=== PATIENT | male | born 1955 | race Caucasian/White ===

== ENCOUNTER 2017-03-31 08:52 | Outpatient (CLI) | payer OTHER ==
--- NOTE | 2017-03-31 10:27 | RAD ---
AP ABDOMINAL RADIOGRAPH: 03/31/2017 HISTORY: Renal stone. FINDINGS: The majority of the right renal shadow is obscured due to overlying retained fecal material in the c olon. No definite suspicious calcifications overlying the expected location of the renal collecting systems bilaterally. There is a calcification overlying the right hemipelvis, which was not seen o n an AP view of the pelvis from 09/11/2014. A distal right ureteral calculus could not be entirely excluded. This measures 5 mm in greatest dimensions. Degenerative changes are seen in the spine. Bowel gas pattern is nonspecific. Surgical clips overly the right upper quadrant. IMPRESSION: Approximately 5 mm, oval-shaped calcification overlying the right hemipelvis. This was not seen on views of the pelvis from 09/11/2014. A distal right ureteral calculus could not be excluded based o n this exam. No additional suspicious calcifications are seen. POS: [facility]
--- NOTE | 2017-03-31 10:48 | ULT ---
RENAL ULTRASOUND: HISTORY: Elevated PSA. COMPARISON: None. TECHNIQUE: Longitudinal and transverse imaging of the kidneys is performed. FINDINGS: The kidneys have a normal cortical echotexture. Bilaterally, no hydronephrosis. The right kidney measures 12.1 x 4.8 x 4.8 cm. The left kidney measures 11.8 x 6 x 6.5 cm. Bladder has a normal mucosal appearance and measures 8.1 x 8.3 x 8.2 cm. IMPRESSION: 1. No hydronephrosis. 2. Normal bladder mucosa. POS:
== END 2017-03-31 08:53 | disposition home or self-care (01) ==
LOC: ULT 08:52
PROVIDERS: ATTEND Urology
DX: N20.0 Calculus of kidney (principal); R97.20 Elevated prostate specific antigen [PSA]
CPT/HCPCS: 74000; 76770

== ENCOUNTER 2017-04-03 14:42 | Outpatient (CLI) | payer OTHER ==
--- NOTE | 2017-04-03 17:53 | RAD ---
ABDOMEN 1 VIEW: Date: 04/03/17 COMPARISON: 03/31/17. HISTORY: Renal stone. FINDINGS: Nonspecific bowel gas pattern. No calcifications projecting over either renal silhouette. Stable david cifications in right hemipelvis, measuring 5.0 mm. IMPRESSION: Stable right hemipelvic calcification. POS: [facility]
== END 2017-04-03 14:43 | disposition home or self-care (01) ==
LOC: RAD 14:42
PROVIDERS: ATTEND Urology
DX: N20.0 Calculus of kidney (principal)
CPT/HCPCS: 74000

== ENCOUNTER 2017-04-15 09:48 | Outpatient (CLI) | payer OTHER ==
[2017-04-15 10:23] LABS: Anion Gap 14 mmol/L (10-20); BUN (Urea Nitrogen) 16 mg/dL (8.4-25.7); Calc. Creatinine Clearance 0 mL/min (70-130); Calcium 9.3 mg/dL (7.8-10.44); Carbon Dioxide 25 mmol/L (23-31); Chloride 104 mmol/L (98-107); Estimated GFR-MDRD 72
--- NOTE | 2017-04-15 13:23 | CT ---
CT ABDOMEN WITH AND WITHOUT IV CONTRAST CT PELVIS WITH AND WITHOUT IV CONTRAST: Date: 04-15-17 History: Recently diagnosed prostate cancer. Rising PSA numbers. Renal stone. Comparison: 08-08-13 FINDINGS: Previously noted inferior pole right renal calculus is no longer seen and there is a 5 mm calculus s een in the distal right ureter which does not result in hydronephrosis or hydroureter. No left renal or ureteral calculus is visualized. There is a small enhancing lesion measuring 8 mm at the posterior aspect superior pole right kidney. This was also seen on a prior study in 2013 and is unchanged in size since that examination. A subc entimeter too small to characterize hypodense lesion is seen at the inferior pole right kidney. The left kidney has a normal CT appearance and no enhancing renal mass or calculus is visualized. Ca lcified granuloma is present at the left lung base. There is a very tiny, less than 4 mm, nodule in the right middle lobe also stable compared to the prior study on 2013. Post cholecystectomy changes are noted. A 1.2 cm low density lesion is seen in the inferior aspect right hepatic lobe which was also seen on the prior exam of 2013 and is smaller in size on today's exam. This probably represents a small hep atic cyst. The spleen, pancreas, bilateral adrenal glands and urinary bladder demonstrate a normal CT appearanc e. Minimal vascular calcifications are seen in the distal infrarenal abdominal aorta and involving the iliac arteries. The appendix is visualized and normal in caliber. There are small fat containing bilateral inguinal hernias. Mild degenerative changes are seen in the spine and there is pseudoarticulation of the right lateral mass of L5 with S1. IMPRESSION: 1. Distal right ureteral calculus measuring 5 mm. This does not result in hydronephrosis or hydroure ter. 2. Approximately 8 mm enhancing nodule posterior aspect superior pole right kidney which may represe nt a very small renal cell carcinoma but is unchanged in size compared to a study obtained at [facility] on 08-08-13. 3. Right hepatic lobe cyst. 4. Small fat containing bilateral inguinal hernias. 5. Small duodenal diverticulum. POS: [facility]
[2017-04-15] MEDS ORDERED: Iopamidol 370 76% 100 ML VIAL ONE (16:05)
== END 2017-04-15 09:49 | disposition home or self-care (01) ==
LOC: CT 09:48
PROVIDERS: ATTEND Urology
DX: N20.0 Calculus of kidney (principal); N20.1 Calculus of ureter; K76.89 Other specified diseases of liver; K40.20 Bilateral inguinal hernia, without obstruction or gangrene, not specified as recurrent; K57.10 Diverticulosis of small intestine without perforation or abscess without bleeding
CPT/HCPCS: 36415; 74178; 80048

== ENCOUNTER 2017-04-30 13:14 | Outpatient (CLI) | payer OTHER ==
--- NOTE | 2017-04-30 15:26 | RAD ---
SUPINE ABDOMEN: History: Prostate ca. Ureteral calculus. Comparison: CT from 04-15-17 revealed a 5 mm calculus in the distal right ureter. Plain film from showed a calculus in the right pelvis which may correspond to that calculus. FINDINGS: Rounded calcification in the right pelvis is again seen and is unchanged. It may reflect the previou sly noted ureteral calculus although it could also represent a phlebolith. No other calculus identif ied. IMPRESSION: Rounded calcification in the right pelvis which would overlie the distal right ureter is again seen and is unchanged when compared to the plain film of 04-03-17. POS: [facility]
[2017-04-30 16:16] LABS: Bilirubin Negative (Negative); Blood, Urine Negative (Negative); Glucose, Urine (Dipstick) 100 mg/dL (Negative); Ketone, Urine Negative (Negative); Nitrite Negative (Negative); Protein, Urine (Dipstick) Negative (Neg-Trace); Urobilinogen 0.2 mg/dL (0.2-1.0)
[2017-04-30 16:17] LABS: Bacteria/HPF None Seen HPF (None Seen); Hyaline Casts/LPF 0-3 HYALINE CAST LPF (0-3 Hyaline); RBC/HPF 0-3 HPF (0-3); Squamous Epithelial None Seen HPF (0-3); WBC/HPF None Seen HPF (0-3)
[2017-04-30 16:21] LABS: Hematocrit 43.5 % (42.0-52.0); Mean Platelet Volume 7.2 fL (7.4-10.4); Red Blood Cell (RBC) Count 4.63 mill/uL (4.70-6.10); White Blood Cell (WBC) Count 8.7 thou/uL (4.8-10.8)
[2017-04-30 16:24] LABS: PTT 27.8 SEC (22.9-36.1); Prothrombin Time 13.3 SEC (12.0-14.7)
[2017-04-30 16:34] LABS: Anion Gap 13 mmol/L (10-20); BUN (Urea Nitrogen) 15 mg/dL (8.4-25.7); Calc. Creatinine Clearance 0 mL/min (70-130); Calcium 9.6 mg/dL (7.8-10.44); Carbon Dioxide 26 mmol/L (23-31); Chloride 102 mmol/L (98-107); Estimated GFR-MDRD 84
== END 2017-04-30 13:15 | disposition home or self-care (01) ==
LOC: RAD 13:14
PROVIDERS: ATTEND Urology
DX: Z01.818 Encounter for other preprocedural examination (principal); N20.1 Calculus of ureter; C61 Malignant neoplasm of prostate
CPT/HCPCS: 74000; 80048; 81001; 85027; 85610; 85730; 87086

== ENCOUNTER 2017-05-29 08:57 | Outpatient (CLI) | payer OTHER ==
--- NOTE | 2017-05-29 12:46 | MRI ---
MRI OF THE PELVIS WITH AND WITHOUT IV CONTRAST: INDICATION: A 61-year-old male with prostate cancer. CONTRAST: 19 cc of MultiHance. TECHNIQUE: Multiplanar, multisequence MR images were obtained of the pelvis with and without contrast utilizing 19 cc of MultiHance. The patient has a diagnosis of Prostate cancer; however, the prostate biopsy is undetermined by the provided data. FINDINGS: The prostate measures 4.2 x 3.4 x 3.9 cm. The total prostatic volume is 28.9 cc. There are some areas of linear and lenticular T1 hyperintensity within the peripheral zone likely rel ated to residual hemorrhage. This corresponds to areas of T2 hypointensity on the T2 weighted images . No overt area of restricted diffusion is seen within the peripheral zone. There is prominence of the central gland likely related to a component of BPH. No suspicious lesion is evident. Anterior fibrostroma is within normal limits. The visualized neurovasculature appears within normal limits. Seminal vesicles are normal-appearing. There is mild wall thickening involving the bladder. No pathologically enlarged lymph nodes eviden t. There are fat-containing bilateral inguinal hernias. Incidental note is made of a small right hy drocele. IMPRESSION: 1. PI-RADS category 2 - low (clinically significant cancer is unlikely to be present). 2. Some limitations of the exam due to hyperintensity within the peripheral zone likely related to s ome underlying residual prostatic hemorrhage. This can obscure evaluation for smaller lesions, parti cularly within the peripheral zone. 3. Prostate enlargement with mild bowel wall thickening may be related to a component of chronic sylvester dder outlet obstruction. 4. Fat-containing bilateral inguinal hernias. 5. Small right-sided hydrocele. POS: [facility]
== END 2017-05-29 08:58 | disposition home or self-care (01) ==
LOC: TBSIIMAG 08:57
PROVIDERS: ATTEND Urology
DX: C61 Malignant neoplasm of prostate (principal)
CPT/HCPCS: 72197

== ENCOUNTER 2017-07-24 16:21 | Outpatient (CLI) | payer OTHER ==
[2017-07-24 17:21] LABS: Hemoglobin 15.7 g/dL (14.0-18.0); Mean Corpuscular HGB CONC 34.3 g/dL (32.0-36.0); Mean Corpuscular Volume 93.3 fl (80.0-94.0); Mean Platelet Volume 7.3 fL (7.4-10.4); Platelet Count 303 thou/uL (130-400); RBC Distribution Width 11.5 % (11.5-14.5); Red Blood Cell (RBC) Count 4.89 mill/uL (4.70-6.10); White Blood Cell (WBC) Count 11.7 thou/uL (4.8-10.8)
[2017-07-24 17:27] LABS: PTT 29.1 SEC (22.9-36.1); Prothrombin Time 13.3 SEC (12.0-14.7)
[2017-07-24 17:35] LABS: Bilirubin Negative (Negative); Blood, Urine Negative (Negative); Clarity CLEAR (Clear); Glucose, Urine (Dipstick) Negative (Negative); Leukocyte Negative (Negative); Nitrite Negative (Negative); Protein, Urine (Dipstick) 30 mg/dL (Neg-Trace); Specific Gravity, Urine 1.025 (1.002-1.036); pH, Urine 6.5 (5.0-9.0)
[2017-07-24 17:37] LABS: Bacteria/HPF None Seen HPF (None Seen); Hyaline Casts/LPF 0-3 HYALINE CAST LPF (0-3 Hyaline); Pathc Cast-AUWi Flag 0.13 (0-2.49); RBC/HPF 0-3 HPF (0-3); Squamous Epithelial None Seen HPF (0-3); WBC/HPF 0-3 HPF (0-3)
[2017-07-24 17:45] LABS: ALT (SGPT) 36 U/L (8-55); AST (SGOT) 30 U/L (5-34); Albumin 4.7 g/dL (3.4-4.8); Alkaline Phosphatase 84 U/L (40-150); Anion Gap 17 mmol/L (10-20); BUN (Urea Nitrogen) 19 mg/dL (8.4-25.7); Bilirubin, Total 0.6 mg/dL (0.2-1.2); Calc. Creatinine Clearance 0 mL/min (70-130); Calcium 9.7 mg/dL (7.8-10.44); Carbon Dioxide 28 mmol/L (23-31); Chloride 100 mmol/L (98-107); Estimated GFR-MDRD 49; Globulin 3.2 g/dL (2.4-3.5); Glucose 124 mg/dL (80-115); Potassium 3.7 mmol/L (3.5-5.1); Protein, Total 7.9 g/dL (5.8-8.1); Sodium 141 mmol/L (136-145)
== END 2017-07-24 16:22 | disposition home or self-care (01) ==
LOC: LABBT 16:21
PROVIDERS: ATTEND Urology
DX: Z01.818 Encounter for other preprocedural examination (principal); C61 Malignant neoplasm of prostate
CPT/HCPCS: 80053; 81001; 85027; 85610; 85730; 87086

== ENCOUNTER 2017-07-30 07:31 | Outpatient (CLI) | payer OTHER ==
--- NOTE | 2017-07-30 08:23 | ULT ---
BILATERAL RENAL ULTRASOUND: History: Renal stones. FINDINGS: The right kidney measures 11.3 cm in length and the left kidney measures 11.6 cm in length. No focal mass or hydronephrosis is seen on either side. Shadowing renal calculi are identified. The urinary bl adder is unremarkable with a pre void volume of 200 cc and a post void residual of 9 cc. IMPRESSION: Unremarkable exam. POS: [facility]
[2017-07-30 08:41] LABS: Anion Gap 12 mmol/L (10-20); BUN (Urea Nitrogen) 15 mg/dL (8.4-25.7); Calc. Creatinine Clearance 0 mL/min (70-130); Calcium 9.2 mg/dL (7.8-10.44); Carbon Dioxide 30 mmol/L (23-31); Chloride 100 mmol/L (98-107); Estimated GFR-MDRD 80; Glucose 187 mg/dL (80-115); Potassium 4.2 mmol/L (3.5-5.1); Sodium 138 mmol/L (136-145)
== END 2017-07-30 07:32 | disposition home or self-care (01) ==
LOC: ULT 07:31
PROVIDERS: ATTEND Urology
DX: N20.0 Calculus of kidney (principal)
CPT/HCPCS: 36415; 76770; 80048

== ENCOUNTER 2017-08-04 10:03 | Outpatient (CLI) | payer OTHER | END 2017-08-04 10:04 | disposition home or self-care (01) | LOC: LABBT 10:03 | PROVIDERS: ATTEND Urology | DX: Z01.818 Encounter for other preprocedural examination (principal); C61 Malignant neoplasm of prostate | CPT/HCPCS: 86850; 86900; 86901 ==

== ENCOUNTER 2017-08-06 06:18 | Inpatient (IN) | payer OTHER ==
[2017-08-06] MEDS ORDERED: Levofloxacin 500 mg/D5W 100 ml Premix Bag ONE (06:27)
[2017-08-06] MEDS ORDERED: cefOXitin Sodium 1 GM, Syringe 0.5 ML in Sterile Water 10 ML SLOW IVP SCH (06:30)
[2017-08-06] MEDS ORDERED: Fentanyl 100 MCG/2 ML VIAL ONE ×2 (07:05→07:35)
[2017-08-06] MEDS ORDERED: Midazolam HCl 2 mg/2 ml Vial ONE (07:05)
[2017-08-06] MEDS ORDERED: Albumin 5% 500 ML ONE ×2 (08:56→09:31)
[2017-08-06] MEDS ORDERED: DOPamine 400 MG/D5W 250 ML 250 ML ONE (09:09)
[2017-08-06] MEDS ORDERED: ceFOXitin 1 GM VIAL ONE ×2 (09:31→12:08)
[2017-08-06] MEDS ORDERED: Norepinephrine 8 MG/0.9% NS 250 ML ONE (10:06)
[2017-08-06] MEDS ORDERED: Rocuronium Bromide 50 MG/5 ML VIAL ONE (12:39)
[2017-08-06] MEDS ORDERED: Bupivacaine HCl 0.5%/Epinephrine 1:200,000/PF 30 ml Vial ONE ×2 (14:38)
[2017-08-06] MEDS ORDERED: Promethazine HCl 25 MG/ML VIAL SLOW IVP PRN (14:59)
[2017-08-06] MEDS ORDERED: Ondansetron HCl/PF 4 MG/2 ML Vial IVP PRN (14:59)
[2017-08-06] MEDS ORDERED: Meperidine HCl/PF 25 MG/ML VIAL SLOW IVP PRN (14:59)
[2017-08-06] MEDS ORDERED: Dextrose 5% in Water 1,000 ML IV PRN (15:33)
[2017-08-06] MEDS ORDERED: Mag-Al 1200 mg/1200 mg/30 ML UDCUP PO PRN (15:33)
[2017-08-06] MEDS ORDERED: Morphine 4 MG/ML Carpuject IVP PRN (15:33)
[2017-08-06] MEDS ORDERED: Dextrose 50% Abboject 50 ML SYRINGE SLOW IVP PRN (15:33)
[2017-08-06] MEDS ORDERED: diphenhydrAMINE 50 MG/ML VIAL IVP PRN (15:33)
[2017-08-06] MEDS ORDERED: Oxybutynin 5 MG TAB PO PRN (15:33)
[2017-08-06] MEDS ORDERED: Zolpidem Tartrate 5 MG TAB PO PRN (15:41)
[2017-08-06] MEDS ORDERED: cefTRIAXone\\ROCEPHIN 1 GM in Sodium Chloride 0.9% 100 ML IVPB SCH (15:45)
[2017-08-06] MEDS ORDERED: ePHEDrine/0.9% NaCl/PF SYRINGE 50 mg/10 ml ONE (15:54)
[2017-08-06] MEDS ORDERED: Morphine 5 MG/ML SYRINGE SLOW IVP PRN (15:54)
[2017-08-06] MEDS ORDERED: Ondansetron HCl/PF 4 MG/2 ML Vial ONE (15:54)
[2017-08-06] MEDS ORDERED: Dexamethasone 20 MG/5 ML VIAL ONE (15:54)
[2017-08-06] MEDS ORDERED: Propofol 200 MG/20 ML VIAL ONE (15:54)
[2017-08-06] MEDS ORDERED: Glycopyrrolate 0.2 MG/ML 5 ML SYRINGE ONE (15:54)
[2017-08-06] MEDS ORDERED: PHENYLEPHRINE-NS 100 MCG/ML 10 ML SYRINGE ONE (15:54)
[2017-08-06] MEDS ORDERED: Lidocaine 1% PF 5 ML VIAL ONE (15:54)
[2017-08-06 16:30] LABS: #Lymphocytes 0.9 thou/uL (1.20-3.40); #Monocytes 0.6 thou/uL (0.11-0.59); #Neutrophils 13.9 thou/uL (1.40-6.50); %Basophils 0.2 % (0.0-1.0); %Eosinophils 0.2 % (0.0-10.0); %Lymphocytes 5.9 % (21.0-51.0); %Monocytes 3.7 % (0.0-10.0); Hemoglobin 12.5 g/dL (14.0-18.0); Mean Corpuscular HGB CONC 34.5 g/dL (32.0-36.0); Mean Corpuscular Hemoglobin 32.6 pg (27.0-31.0); Mean Corpuscular Volume 94.6 fl (80.0-94.0); Mean Platelet Volume 7.4 fL (7.4-10.4); Platelet Count 221 thou/uL (130-400); RBC Distribution Width 11.6 % (11.5-14.5); Red Blood Cell (RBC) Count 3.84 mill/uL (4.70-6.10); White Blood Cell (WBC) Count 15.4 thou/uL (4.8-10.8)
[2017-08-06 16:50] LABS: Anion Gap 13 mmol/L (10-20); BUN (Urea Nitrogen) 16 mg/dL (8.4-25.7); Calc. Creatinine Clearance 85 mL/min (70-130); Calcium 8.4 mg/dL (7.8-10.44); Carbon Dioxide 22 mmol/L (23-31); Chloride 107 mmol/L (98-107); Estimated GFR-MDRD 63; Glucose 184 mg/dL (80-115); Potassium 4.1 mmol/L (3.5-5.1); Sodium 138 mmol/L (136-145)
[2017-08-06] MEDS ORDERED: cefTRIAXone\\ROCEPHIN 1 GM, Syringe 0.4 ML in Sterile Water 9.6 ML SLOW IVP SCH ×2 (17:00→20:00)
[2017-08-06] MEDS ORDERED: Meperidine HCl/PF 25 MG/ML VIAL ONE (17:19)
--- NOTE | 2017-08-06 18:15 | OP ---
DATE OF CONSULTATION: 08/06/2017 PREOPERATIVE DIAGNOSES: 1. Clinical T1c Dundee's score 3+4 prostate cancer. 2. History of impotence. POSTOPERATIVE DIAGNOSES: 1. Clinical T1c Dundee's score 3+4 prostate cancer. 2. History of impotence. PROCEDURE PERFORMED: Robotic-assisted laparoscopic radical prostatectomy, nerve sparing SURGEON: Corrine Nance D.O. LEGAL INVESTIGATOR: Jesus Claros M.D. ANESTHESIA: General. INTRAVENOUS FLUIDS: Approximately 2 liters. ESTIMATED BLOOD LOSS: 150 mL COMPLICATIONS: None apparent. DISPOSITION: To the recovery room in stable condition. SPECIMENS: 1. Prostate, seminal vesicle, portion of vas 2. Frozen sections of the left apical margin x3: Negative for malignancy, right apical margin negative for malignancy. 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 The patient previously followed by Dr. Mari, had prior biopsy due to elevated PSA which has been negative. He presented with a PSA of 8.6, previous PSA of 6.6-7.0. Prostate biopsy demonstrated Dundee score 3+4 prostate cancer involving the left apex to mid prostate. Nomogram demonstrated 1% lymph node probability; therefore lymph node dissection was not performed today. He has been fully informed regarding alternative treatment options including various modality of radiation therapy, active surveillance, watchful waiting. After much consultation, he desired to proceed with robotic-assisted laparoscopic radical prostatectomy, possible conversion to open. He was offered second opinion, which he had sought. He returned to my office to proceed with radical prostatectomy, which he desires for me to proceed with surgery. He declined tertiary care referral . All questions were answered to his satisfaction and he desired to proceed. As he has baseline impotence and has not been sexually active for numerous years, I informed the patient that there is a higher risk of margin positive disease with nerve sparing approach, he desired a trial of nerve sparing; however, he was open to non-nerve sparing if significant adherent tissue. Moreover, his prostate cancer is localized to the left side, patient was advised that we can try to spare the right nerve. Risks and complications were fully discussed with the patient including but not limited to: Bleeding, pain, infection, injury to adjacent organs, such as nerves, major vasculature, bony prominences, PE, DVT, perioperative morbidity and mortality, urinary incontinence that may warrant further intervention, impotence, nerve injury was reviewed with him in detail. The patient also informed regarding possible margin positive disease or biochemical recurrence requiring adjuvant therapy. DESCRIPTION OF THE PROCEDURE: After an informed consent was signed, the patient was taken to the operating room, placed in supine position. General anesthesia, tap block as well as art-line was placed. NG tube was placed. Bilateral KATHLEEN hose, SCDs, and broad-spectrum antibiotics were provided. The patient was placed in 20 degrees steep Trendelenburg position with all pressure points padded and protected at all times. The patient was placed on a antiskid foam pad. His chest was secured with foam tape. At this time, we obtained pneumoperitoneum using a Veress needle entry at the level of the umbilicus. After appropriate pressure of 15 mmHg, we made a camera port incision just inferior to the umbilicus for our 12 mm port. The initial Veress needle appeared to have traversed the prevesical space; however, this was immediately corrected and was not an issue throughout the surgery. The 12 mm port was placed and we inspected the intra-abdominal cavity which demonstrated no evidence of bowel or vascular injury. There were no significant adhesions from his previous laparoscopic cholecystectomy. The left colon was somewhat mildly adherent to the lateral pelvis. Therefore, the lysis of adhesion was performed releasing colon/ rectum that it may be retracted cephalad without tension. At this time, we placed our robotic port sites. #1 arm trocar incision was made with an 11 blade and similarly with the rest of the robotic arms. A 15 mm robotic trocar was placed after 11 mm salon assistant port was placed. We then placed our lateral 8 mm ports on the left side x2, a 5 mm salon assistant port was placed in the right upper quadrant. After all robotic arm ports were placed appropriately, the robot was docked. Then, we began our procedure. Using the ProGrasp bipolar and monopolar scissors, we performed our posterior dissection. Approximately 1 to 1.5 cm cephalad anterior to the rectal reflection of the rectovesical pouch, peritoneum was incised. The seminal vesicles and bilateral vas were identified using blunt and sharp dissection. We used bipolar energy on the right. The bilateral vas was dissected sharply using monopolar scissors and divided with our bipolar. The seminal vesicles were very floppy and redundant with significant vasculature adherent. Using sharp and blunt dissection, we were able to mobilize it completely. We did appreciate that the Denonvilliers fascia had significant desmoplastic reaction with the portions of the seminal vesicles that appeared to be adherent. We did release it off the Denonvilliers fascia posteriorly as much as we could. However, some aspects were still adherent. As it was felt to be adequately mobilized, Surgicel placed in the bed of the dissection and we proceeded to perform our bladder dissection. The medial umbilical ligaments were identified bilaterally, there was minimal subcutaneous pneumoperitoneum; however, this was released immediately as we made a counter incision at the perineum. The medial umbilical ligament to the level of the vas deferens was divided, mobilizing our medial and lateral ligaments and developing a space towards the pubic arch. The fibroareolar tissue was dissected cleanly off the pubic rami developing our endopelvic fascia plane. With the bladder dropped with the medial umbilical ligament completely transected, the bladder was then retracted cephalad. The pubic arch was then subsequently further dissected, so that all fiber areolar tissue was off the pubic rami. With the bladder retracted with the third arm, we then developed our endopelvic fascia. We first performed this on the right side, the endopelvic fascia was opened with our monopolar scissors, the levator muscles were dissected cleanly off the lateral aspect of the prostate and this came off nicely. The dorsal venous complex was then inspected. There were some superficial veins which were cauterized with a monopolar [place]. With the endopelvic fascia completely divided to the level of the puboprostatic ligament, the ligament was sharply dissected after hemostasis of the underlying vasculature. We divided the puboprostatic ligaments successfully, however, as there was some venous oozing from the left apex. We then converted to our vascular staple. Using 45 mm, 4.3 mm load, vascular stapler was placed and the dorsal venous complex and divided. There was residual dorsal venous complex that was oozing from the left side. Therefore, using a 0 Vicryl on a CT1 needle with a [id number] stitch was placed in the dorsal vein complex, which resolved the bleeding from the dorsal venous complex and successful hemostasis was obtained. At this time , we developed our prostatovesicle junction. An upside down Farnsworth face was made at the level of the mid prostate with the bladder muscles were inserting into the prostate. The prostatic urethra was sharply dissected using monopolar scissors. The bladder neck dissection was performed in which bladder neck sparing was performed. the posterior plane was met which seminal vesicles and bilateral vas was then delivered anteriorly. We then tried to approach the Denonvilliers fascia from the anterior dissection. The lateral pedicles towards the apex of the prostate still had some significant desmoplastic reaction adherence. Therefore, using sharp dissection, we mobilized the lateral pedicles off the rectum as much as we could. We did perform nerve sparing on the right side where the patient had no evidence of cancer. Of note , at the end of the procedure, the left nerve also appeared to be intact as well after the prostate was delivered. We developed our plane on the lateral pedicles fascia using blunt and sharp dissection using vessel sealer and changing over to bipolar [place] towards the apex of the prostate. The apex of the prostate was quite stuck. He did have significant varicosities and oozing which ended our visualization; however, we were able to divide the urethra and transected successfully. The apical tissue was quite adherent, we were careful on dissecting this region to avoid rectal injury. Using sharp dissection with bipolar energy only, the apex of the prostate was further divided. At the end of the procedure, we inspected the urethral stump which had good healthy tissue. As there was concern regarding possible residual tissue at the apex, we sent some frozen margins in this region. Left apical dissection region was sent for tissue diagnosis. This did demonstrate benign prostate tissue. We subsequently passed more tissue with sharp dissection which demonstrated at the end, only 10% of benign prostatic tissue residual was fibroadipose tissue. We also looked at the right apical transection site underneath the urethra stump. Again, these spots were very adherent to the rectum. With sharp dissection, we sent some frozen margins from the left the apical side as this is the side of his cancer which demonstrated benign prosthetic tissue; however, no malignancy. Decision was made intraoperatively at this point to not to remove more tissue as this was on the plane intimately associated with rectum; moreover there was no substantial tissue. As there was no residual cancer left, decision was made to proceed with the anastomosis. Using 2-0 Vicryl on an SH needle, Jam stitch was placed. Prior to performing this, we placed a Rico catheter into the bladder insufflating with 7 mL of sterile water which allowed us to identify bladder neck very well. Jam stitch was performed in a [id number] fashion. This aligned our anastomosis very nicely. Using 2-0 V-Loc stitch on an SH needle, anastomosis was performed with a watertight closure which we tested at the end of the case. Tisseel was then placed near anastomosis in the lateral colic gutters. A circular drain was placed through our left robotic arm 3, 8 mm port site and sutured to skin using 2-0 nylon. Our specimen was then delivered, placed in an EndoCatch, which was then passed through a 12 mm port. All port sites were then removed and we closed our 11 mm, 15 mm port sites with a Quentin-Kinza needle using 2-0 Vicryl. Skin was closed with 4-0 Monocryl in a subcuticular fashion. The fascia of our 12 mm camera port was closed with 2-0 Vicryl in a [id number] fashion interrupted. He tolerated the procedure well and transported to the recovery room in stable condition. [facility]
[2017-08-06] MEDS: Carvedilol 25 MG TAB PO SCH (20:26)
[2017-08-06] MEDS: Docusate 100 MG CAP PO SCH (20:26)
[2017-08-06] MEDS: HYDROcodone/Acetaminophen 10/325 mg Tablet PO PRN (20:27)
[2017-08-06] MEDS: Sodium Chloride 0.9% 1,000 ML IV SCH (20:29)
[2017-08-06] MEDS ORDERED: Famotidine/PF 20 mg/2ml Vial SLOW IVP SCH (21:00)
[2017-08-07] MEDS: HYDROcodone/Acetaminophen 10/325 mg Tablet PO PRN ×2 (00:19→10:11)
[2017-08-07] MEDS: Sodium Chloride 0.9% 1,000 ML IV SCH ×2 (00:19→07:23)
[2017-08-07 00:43] VITALS: BMI 32.3
[2017-08-07] MEDS: metFORMIN 500 MG TAB PO SCH ×3 (01:52→17:30)
[2017-08-07 04:41] LABS: #Lymphocytes 0.9 thou/uL (1.20-3.40); #Monocytes 1.2 thou/uL (0.11-0.59); #Neutrophils 11.4 thou/uL (1.40-6.50); %Basophils 0.1 % (0.0-1.0); %Eosinophils 0.1 % (0.0-10.0); %Lymphocytes 6.8 % (21.0-51.0); %Monocytes 8.8 % (0.0-10.0); %Neutrophils 84.2 % (42.0-75.0); Hemoglobin 11.7 g/dL (14.0-18.0); Mean Corpuscular HGB CONC 33.7 g/dL (32.0-36.0); Mean Corpuscular Hemoglobin 32.1 pg (27.0-31.0); Mean Corpuscular Volume 95.1 fl (80.0-94.0); Mean Platelet Volume 7.8 fL (7.4-10.4); Platelet Count 210 thou/uL (130-400); RBC Distribution Width 11.7 % (11.5-14.5); Red Blood Cell (RBC) Count 3.64 mill/uL (4.70-6.10); White Blood Cell (WBC) Count 13.5 thou/uL (4.8-10.8)
[2017-08-07 04:48] LABS: Anion Gap 14 mmol/L (10-20); BUN (Urea Nitrogen) 16 mg/dL (8.4-25.7); Calc. Creatinine Clearance 103 mL/min (70-130); Calcium 8.3 mg/dL (7.8-10.44); Carbon Dioxide 23 mmol/L (23-31); Chloride 107 mmol/L (98-107); Estimated GFR-MDRD 75; Glucose 154 mg/dL (80-115); Potassium 3.7 mmol/L (3.5-5.1); Sodium 140 mmol/L (136-145)
[2017-08-07] MEDS: Levothyroxine Sodium 125 MCG TAB PO SCH (06:21)
--- NOTE | 2017-08-07 07:50 | PRG ---
DATE OF SERVICE: 08/07/2017 SUBJECTIVE: The patient feeling well, states that he is hungry, desires to advance his diet, has passed flatus this morning. Pain adequately controlled with oral pain meds, last provided last night around 10:00 p.m. PHYSICAL EXAMINATION: VITAL SIGNS: Stable, afebrile. I's and O's 2200 in, 1300 out. He is positive 900 mL, oral intake is 700 mL. Urine output 1250, clear yellow. AMRITA 50 mL serosanguineous. LUNGS: Clear. ABDOMEN: Soft, nondistended, bowel sounds are active. EXTREMITIES: No cyanosis, clubbing or edema, no evidence of neurologic deficits. Moving all extremities, symmetric with equal strength. LABORATORY DATA: White count 13, hemoglobin 11.7, platelet 210. BNP profile is unremarkable. Blood sugar is running from 169-157. IMPRESSION AND PLAN: Mr. Schmidt is a 61-year-old male, clinical T1c Jose D's score 3+4 adenocarcinoma of the prostate, postoperative day #1 robotic-assisted laparoscopic radical prostatectomy. We will advance his diet as he is passing flatus. We will monitor his H&H. Some of this is likely hemodilutional factor. Will monitor his AMRITA output. Pending his clinical course, if the patient is tolerating regular diet with H&H stable, will most likely be discharged tomorrow morning. Patient encouraged to be out of bed. Hep-Lock IV. If H&H stable tomorrow, we will initiate Lovenox. Bilateral KATHLEEN hose, SCDs remain in place for DVT prophylaxis. Aggressive out of bed ambulation advised. [facility]
[2017-08-07] MEDS ORDERED: Non-Formulary Item 1 EACH (Amlodipine Besylate/Benazepril [Amlodipine Besylate/Benazepril PO SCH (09:00)
[2017-08-07] MEDS ORDERED: FLU VACC QS2017-18 36 mo. & older 0.5 ML SYRINGE IM ONE (09:00)
[2017-08-07] MEDS: Carvedilol 25 MG TAB PO SCH ×2 (10:01→20:08)
[2017-08-07] MEDS: Amlodipine 10 MG TAB PO SCH (10:01)
[2017-08-07] MEDS: Bupropion 150 MG SR TAB PO SCH (10:01)
[2017-08-07] MEDS: Docusate 100 MG CAP PO SCH ×2 (10:01→20:07)
[2017-08-07] MEDS: Famotidine 20 MG TAB PO SCH ×2 (10:01→20:07)
[2017-08-07] MEDS: Atorvastatin Calcium 10 MG TAB PO SCH (10:01)
[2017-08-07] MEDS: Venlafaxine HCl XR 150 MG CAP PO SCH (10:02)
[2017-08-07] MEDS: Morphine 5 MG/ML SYRINGE SLOW IVP PRN (12:27)
[2017-08-07] MEDS: Acetaminophen 500 MG TAB PO PRN (15:23)
[2017-08-07] MEDS: Zolpidem Tartrate 5 MG TAB PO PRN (21:05)
[2017-08-08] MEDS: Ondansetron HCl/PF 4 MG/2 ML Vial IVP PRN ×3 (04:54→21:07)
[2017-08-08] MEDS: Levothyroxine Sodium 125 MCG TAB PO SCH (04:54)
[2017-08-08 05:28] LABS: #Basophils 0.1 thou/uL (0.0-0.2); #Eosinphils 0.1 thou/uL (0.0-0.7); #Lymphocytes 1.8 thou/uL (1.20-3.40); #Monocytes 1.7 thou/uL (0.11-0.59); #Neutrophils 14.7 thou/uL (1.40-6.50); %Basophils 0.3 % (0.0-1.0); %Eosinophils 0.5 % (0.0-10.0); %Lymphocytes 9.7 % (21.0-51.0); %Monocytes 9.4 % (0.0-10.0); %Neutrophils 80.1 % (42.0-75.0); Mean Corpuscular HGB CONC 33.1 g/dL (32.0-36.0); Mean Corpuscular Hemoglobin 31.5 pg (27.0-31.0); Mean Platelet Volume 8.2 fL (7.4-10.4); Platelet Count 225 thou/uL (130-400); RBC Distribution Width 11.8 % (11.5-14.5); Red Blood Cell (RBC) Count 4.14 mill/uL (4.70-6.10); White Blood Cell (WBC) Count 18.3 thou/uL (4.8-10.8)
[2017-08-08 05:43] LABS: Anion Gap 13 mmol/L (10-20); BUN (Urea Nitrogen) 16 mg/dL (8.4-25.7); Calc. Creatinine Clearance 117 mL/min (70-130); Calcium 8.7 mg/dL (7.8-10.44); Carbon Dioxide 24 mmol/L (23-31); Chloride 105 mmol/L (98-107); Estimated GFR-MDRD 87; Glucose 145 mg/dL (80-115); Potassium 3.4 mmol/L (3.5-5.1); Sodium 139 mmol/L (136-145)
--- NOTE | 2017-08-08 08:16 | PRG ---
DATE OF SERVICE: 08/08/2017 SUBJECTIVE: The patient is feeling fatigued this morning, denies chest pain, shortness of breath, had 1 episode of nausea last night on a regular diet. He is passing flatus, however, is not as robust as it was before. PHYSICAL EXAMINATION: VITAL SIGNS: Currently 98, pulse 100, 93% on 2 liters, 167/82. I's and O's 1140 in. Urine output 2250 clear yellow. AMRITA is 45 over 24 hours, 20 over the last 12 hours, it is mostly serous. ABDOMEN: Protuberant, it is mildly more distended than it was yesterday, bowel sounds are active; however, not as active as it was yesterday. Incisions are clean, dry, and intact. There is no rigidity, no rebound. GENITOURINARY: Rico catheter is adequate secured draining clear yellow urine. EXTREMITIES: No cyanosis, clubbing or edema. LABORATORY DATA: White count 18, hemoglobin stable at 13, platelets 225, 80 segs, BMP profile is grossly unremarkable. IMPRESSION AND PLAN: Mr. Schmidt is a 61-year-old male with clinical T1c adenocarcinoma of the prostate status post robotic assisted laparoscopic radical prostatectomy, postop day #2. Clinically, he appears to have developed mild ileus, will revert back to clear liquids. patient has been aggressively out of bed ambulating. As his hemoglobin is now stable, will initiate Lovenox. He is to continue his bilateral KATHLEEN hose, SCDs. There is leukocytosis today, he is feeling somewhat fatigued, we will obtain PA and lateral chest x-ray, LE US. Due to leukocytosis, will keep patient in house and continue to monitor. [facility]
[2017-08-08] MEDS ORDERED: Cefepime 2 GM in Sodium Chloride 0.9% 100 ML IVPB SCH (09:00)
[2017-08-08] MEDS: metFORMIN 500 MG TAB PO SCH ×2 (09:23→17:33)
[2017-08-08] MEDS: Atorvastatin Calcium 10 MG TAB PO SCH (09:23)
[2017-08-08] MEDS: Docusate 100 MG CAP PO SCH ×2 (09:24→20:52)
[2017-08-08] MEDS: Venlafaxine HCl XR 150 MG CAP PO SCH (09:24)
[2017-08-08] MEDS: Carvedilol 25 MG TAB PO SCH ×2 (09:24→20:52)
[2017-08-08] MEDS: Famotidine 20 MG TAB PO SCH ×2 (09:24→20:52)
[2017-08-08] MEDS: Bupropion 150 MG SR TAB PO SCH (09:25)
[2017-08-08] MEDS: Amlodipine 10 MG TAB PO SCH (09:27)
--- NOTE | 2017-08-08 09:27 | RAD ---
PA AND LATERAL CHEST XRAY: DATE: 08/08/17. FINDINGS: There is parenchymal opacity seen at each lung base within the posterior aspect of the lower lobes wo rrisome for bibasilar pneumonia. There is slight blunting of each lateral and posterior costophrenic angle suggesting small bilateral pleural effusions. The cardiac silhouette and pulmonary vasculature are within normal limits. Surgical clips overlie th e right upper quadrant. Multiple remote healed left-sided rib fractures are again seen with degenera tive change in the spine. IMPRESSION: 1. Left lower lobe parenchymal opacity suggesting pneumonia. There is also a patchy density at the right lung base which may be related to atelectasis; although developing pneumonitis at the right chel g base cannot be excluded. Followup to resolution is recommended. 2. Very small bilateral pleural effusions. POS: [facility]
[2017-08-08] MEDS: Enoxaparin Sodium 40 MG/0.4 ML SYRINGE SC SCH (09:29)
[2017-08-08] MEDS: Cefepime 2 GM, Syringe 2.5 ML in Sterile Water 10 ML SLOW IVP SCH ×2 (09:51→20:52)
--- NOTE | 2017-08-08 09:54 | ULT ---
ULTRASOUND WITH DOPPLER DUPLEX VENOUS LOWER EXTREMITY BILATERAL: CPT: 14318 ICD-10-PCS: B54D HISTORY: Hypoxia, short of breath, edema. TECHNIQUE: Color flow Doppler, spectral waveform analysis of pulsed Doppler, and wick-scale imaging with vicente lise and augmentation, were used to evaluate the bilateral common femoral, femoral, popliteal, photograph printer ior tibial, and superficial femoral, veins; and the proximal portions of the profunda femoral and gre ater saphenous, veins. FINDINGS: Appropriate compressibility and flow within the imaged deep vein systems of each lower extremity. IMPRESSION: No deep vein thrombosis. POS: [facility]
[2017-08-08] MEDS: Insulin Regular 300 UNITS/3 ML VIAL SC PRN (12:42)
[2017-08-08] MEDS: Acetaminophen 500 MG TAB PO PRN ×2 (12:56→20:52)
[2017-08-08] MEDS ORDERED: Bisacodyl 5 MG TAB PO PRN (13:21)
[2017-08-08] MEDS: Azithromycin 500 MG, Admixture Fee 1 EACH in Sodium Chloride 0.9% 250 ML 250 ML IVPB SCH (14:18)
[2017-08-08] MEDS: Albuterol Sulfate 1.25 MG/3 ML NEB IPPB SCH ×2 (17:21→22:16)
[2017-08-08] MEDS: Zolpidem Tartrate 5 MG TAB PO PRN (22:13)
[2017-08-09 04:48] LABS: #Basophils 0.1 thou/uL (0.0-0.2); #Eosinphils 0.3 thou/uL (0.0-0.7); #Lymphocytes 1.9 thou/uL (1.20-3.40); #Monocytes 1.5 thou/uL (0.11-0.59); #Neutrophils 10.1 thou/uL (1.40-6.50); %Basophils 0.5 % (0.0-1.0); %Lymphocytes 13.5 % (21.0-51.0); %Monocytes 10.9 % (0.0-10.0); %Neutrophils 73.1 % (42.0-75.0); Hemoglobin 12.5 g/dL (14.0-18.0); Mean Corpuscular HGB CONC 34.1 g/dL (32.0-36.0); Mean Corpuscular Hemoglobin 32.7 pg (27.0-31.0); Mean Corpuscular Volume 95.7 fl (80.0-94.0); Mean Platelet Volume 8.1 fL (7.4-10.4); Platelet Count 200 thou/uL (130-400); RBC Distribution Width 11.6 % (11.5-14.5); Red Blood Cell (RBC) Count 3.84 mill/uL (4.70-6.10); White Blood Cell (WBC) Count 13.8 thou/uL (4.8-10.8)
[2017-08-09 05:03] LABS: Anion Gap 10 mmol/L (10-20); BUN (Urea Nitrogen) 14 mg/dL (8.4-25.7); Calc. Creatinine Clearance 137 mL/min (70-130); Calcium 8.6 mg/dL (7.8-10.44); Carbon Dioxide 27 mmol/L (23-31); Chloride 105 mmol/L (98-107); Estimated GFR-MDRD Greater than 90; Glucose 113 mg/dL (80-115); Potassium 3.1 mmol/L (3.5-5.1); Sodium 139 mmol/L (136-145)
[2017-08-09] MEDS: Levothyroxine Sodium 125 MCG TAB PO SCH (05:42)
[2017-08-09] MEDS: Albuterol Sulfate 1.25 MG/3 ML NEB IPPB SCH ×3 (06:18→22:16)
[2017-08-09] MEDS: Amlodipine 10 MG TAB PO SCH (08:37)
[2017-08-09] MEDS: metFORMIN 500 MG TAB PO SCH ×2 (08:37→17:37)
[2017-08-09] MEDS: Atorvastatin Calcium 10 MG TAB PO SCH (08:37)
[2017-08-09] MEDS: Carvedilol 25 MG TAB PO SCH ×2 (08:38→21:13)
[2017-08-09] MEDS: Docusate 100 MG CAP PO SCH ×2 (08:38→21:13)
[2017-08-09] MEDS: Famotidine 20 MG TAB PO SCH ×2 (08:38→21:13)
[2017-08-09] MEDS: Bupropion 150 MG SR TAB PO SCH (08:39)
[2017-08-09] MEDS: Venlafaxine HCl XR 150 MG CAP PO SCH (08:39)
[2017-08-09] MEDS: Cefepime 2 GM, Syringe 2.5 ML in Sterile Water 10 ML SLOW IVP SCH ×2 (08:41→21:13)
[2017-08-09] MEDS: Enoxaparin Sodium 40 MG/0.4 ML SYRINGE SC SCH (08:43)
--- NOTE | 2017-08-09 12:15 | PRG ---
DATE OF SERVICE: 08/09/2017 TIME: 11:30 p.m. SUBJECTIVE: Postop day #3 status post robotic prostatectomy. Nurses are having difficult time incre asing his activity. Yesterday, he had some nausea. However, overnight, he has had several loose bow el movements. His bowels are less distended. He was also started on neb treatments as well as antib iotics. OBJECTIVE: VITAL SIGNS: Temperature 98.3, pulse 87, blood pressure 145/70, pulse ox 94. HEART: Regular rate and rhythm. LUNGS: Clear. No rales or wheezing noted. ABDOMEN: Soft, mild tenderness, decreased bowel sounds. EXTREMITIES: With no edema. LABORATORY DATA: White count 13.8, down from 18.8; H and H 12 and 36. Sodium 3.1, creatinine 0.75 a nd blood sugar 113. ASSESSMENT: 1. Postoperative day #3 status post robotic prostatectomy. 2. Ileus, resolving. The patient has had more loose stools. Nausea is decreased. 3. Atelectasis, possible early pneumonia. 4. Leukocytosis has resolved. He was started on antibiotics and nebulizer treatments. PLAN: 1. Continue routine postoperative care. 2. Continue antibiotics. 3. Patient's probable main issue is inactivity. Nursing is having difficult time increasing his amb ulation. However, he is doing somewhat better. The plan is to increase his activity today. 4. If he is still here, we may repeat a chest x-ray in the a.m. However, I think he is improving.
[2017-08-09] MEDS: Insulin Regular 300 UNITS/3 ML VIAL SC PRN (13:12)
--- NOTE | 2017-08-09 13:55 | PRG ---
DATE OF SERVICE: 08/09/2017 SUBJECTIVE: The patient states he is feeling well this morning. He is not complaining of any shortn ess of breath, chest pain, or significant abdominal pain. His belly is still a little sore, but he s tates the pain medicines are well controlling his pain. He did have a bowel movement this morning an d states that he is feeling hungry. He has been up and out of bed and is using his incentive spirome ter. Of note, he is complaining of lot of sinus drainage and cough. He does have a known diagnosis of postoperative pneumonia, which he is currently being treated for by [facility] Medicine service. OBJECTIVE: VITAL SIGNS: Temperature 98.3, pulse 79, respirations 18, blood pressure 116/66, saturation is 91% o n room air. GENERAL: No apparent distress, communicative, and alert. HEENT: No sinus tenderness. CARDIOVASCULAR: Regular rate and rhythm. Normal S1 and S2. CHEST: Bibasilar crackles, otherwise no increased work of breathing and symmetric expansion of lungs . ABDOMEN: Soft, appropriately tender to palpation, nondistended, positive bowel sounds. Incisions cl nory, dry, and intact. AMRITA serosanguineous. GENITOURINARY: Rico catheter in place, secured with completely clear urine. EXTREMITIES: No clubbing, cyanosis, or edema. SCDs in place. LABORATORY EVALUATION: The full set of labs in the [facility] system, which I have reviewed. Of note, the patient's white count is 13.8, down from 18.3; hemoglobin is stable at 12.5. Creatinine is 0.75 . Potassium is a little low at 3.1. ASSESSMENT AND PLAN: A 61-year-old white male with prostate cancer, status post robotic prostatectom y with postoperative pneumonia. It appears that his mild ileus is resolving, as he did have a bowel movement and he does have an appetite. I will go back to an ADA diet and see if he tolerates this. I have recommended he continue to use incentive spirometer and ambulate at least 3 times a day if not more. Respiratory therapy is seeing him and I agree with the treatment plan. We will send his AMRITA f luid for creatinine today as well, as it can probably be removed tomorrow. For his sinus and pulmona ry congestion, the patient has requested something to help him with the mucus. So, I will send him s ome Mucinex for we will not add a cough suppressant to allow him to clear his secretions properly. I f everything goes well with his diet, his pain control, ambulation, and catheter care, I think the macario tamera can probably be discharged tomorrow, but we will reevaluate at that time.
[2017-08-09] MEDS ORDERED: Potassium Chloride 20 MEQ TAB PO SCH (14:00)
[2017-08-09] MEDS: Azithromycin 500 MG, Admixture Fee 1 EACH in Sodium Chloride 0.9% 250 ML 250 ML IVPB SCH (15:13)
[2017-08-09] MEDS: guaiFENesin ER 600 MG TAB PO SCH (21:13)
[2017-08-09] MEDS: Zolpidem Tartrate 5 MG TAB PO PRN (21:13)
[2017-08-09] MEDS: Morphine 5 MG/ML SYRINGE SLOW IVP PRN (21:19)
[2017-08-10] MEDS: HYDROcodone/Acetaminophen 10/325 mg Tablet PO PRN (01:38)
[2017-08-10 04:51] LABS: #Basophils 0.1 thou/uL (0.0-0.2); #Eosinphils 0.5 thou/uL (0.0-0.7); #Lymphocytes 2.5 thou/uL (1.20-3.40); #Monocytes 1.2 thou/uL (0.11-0.59); #Neutrophils 7.8 thou/uL (1.40-6.50); %Basophils 0.7 % (0.0-1.0); %Eosinophils 4.4 % (0.0-10.0); %Lymphocytes 20.5 % (21.0-51.0); %Monocytes 10.2 % (0.0-10.0); %Neutrophils 64.3 % (42.0-75.0); Hemoglobin 12.2 g/dL (14.0-18.0); Mean Corpuscular HGB CONC 34.6 g/dL (32.0-36.0); Mean Corpuscular Hemoglobin 32.5 pg (27.0-31.0); Mean Corpuscular Volume 93.8 fl (80.0-94.0); Mean Platelet Volume 8.2 fL (7.4-10.4); Platelet Count 232 thou/uL (130-400); RBC Distribution Width 11.5 % (11.5-14.5); Red Blood Cell (RBC) Count 3.76 mill/uL (4.70-6.10); White Blood Cell (WBC) Count 12.1 thou/uL (4.8-10.8)
[2017-08-10 05:08] LABS: Anion Gap 10 mmol/L (10-20); BUN (Urea Nitrogen) 15 mg/dL (8.4-25.7); Calc. Creatinine Clearance 129 mL/min (70-130); Carbon Dioxide 28 mmol/L (23-31); Chloride 104 mmol/L (98-107); Estimated GFR-MDRD Greater than 90; Glucose 104 mg/dL (80-115); Potassium 3.3 mmol/L (3.5-5.1); Sodium 139 mmol/L (136-145)
[2017-08-10] MEDS: Levothyroxine Sodium 125 MCG TAB PO SCH (05:53)
[2017-08-10] MEDS: Albuterol Sulfate 1.25 MG/3 ML NEB IPPB SCH ×2 (07:23→13:53)
[2017-08-10] MEDS: Famotidine 20 MG TAB PO SCH (08:42)
[2017-08-10] MEDS: Carvedilol 25 MG TAB PO SCH (08:42)
[2017-08-10] MEDS: metFORMIN 500 MG TAB PO SCH (08:43)
[2017-08-10] MEDS: Amlodipine 10 MG TAB PO SCH (08:43)
[2017-08-10] MEDS: Venlafaxine HCl XR 150 MG CAP PO SCH (08:44)
[2017-08-10] MEDS: Docusate 100 MG CAP PO SCH (08:44)
[2017-08-10] MEDS: Enoxaparin Sodium 40 MG/0.4 ML SYRINGE SC SCH (08:44)
[2017-08-10] MEDS: Bupropion 150 MG SR TAB PO SCH (08:44)
[2017-08-10] MEDS: Atorvastatin Calcium 10 MG TAB PO SCH (08:50)
[2017-08-10 12:18] VITALS: BP 153/78; TEMP 98.3
[2017-08-10] MEDS: Cefepime 2 GM, Syringe 2.5 ML in Sterile Water 10 ML SLOW IVP SCH (12:51)
--- NOTE | 2017-08-10 13:46 | PRG ---
DATE OF SERVICE: 08/10/2017 SUBJECTIVE: The patient is doing well today. He has ambulated 3 laps around the varela this morning. He is tolerating a regular diet. He complains of minimal pain. No complaints of any cough or conge stion. OBJECTIVE: VITAL SIGNS: Temperature 98.2, pulse 72, blood pressure 156/80, pulse ox 93. HEART: Regular rate and rhythm. LUNGS: Clear. ABDOMEN: Soft. EXTREMITIES: With no edema. LABORATORY: White count 12.1 and H and H 12 and 35. Electrolytes normal. Potassium slightly low at 3.3. Creatinine 0.8. ASSESSMENT: 1. Postoperative day #4, status post robotic prostatectomy 2. Ileus, resolved. 3. Atelectasis, resolving. 4. Leukocytosis, resolving. PLAN: 1. Probable discharge home today by Dr. Claros. 2. Continue Levaquin. 3. Follow up with Dr. Adrian Cruz this week. 4. Resume all home medications including his new medications, which include Levaquin, VESIcare, and [place].
[2017-08-10] MEDS ORDERED: FLU VACC QS2017-18 36 mo. & older 0.5 ML SYRINGE IM ONE (14:30)
[2017-08-10] MEDS: guaiFENesin ER 600 MG TAB PO SCH (14:34)
--- NOTE | 2017-08-11 07:41 | HP ---
DATE OF CONSULTATION: 08/08/2017 ADMITTING PHYSICIAN: Corrine Nance D.O. CONSULTING PHYSICIAN: Adrian Cruz M.D. HISTORY OF PRESENT ILLNESS: The patient is a 61-year-old male status post robotic assisted prostatec augustina. The patient has developed general lassitude fatigue today, actually being planned on being dis charged today; however, he just feels like he has no energy, feels little bit nauseous, no vomiting. He has noticed some cough. He underwent evaluation with chest x-ray and venogram. His venogram was noted to be normal. Chest x-ray was positive for a patch of infiltrate noted at the left lower lobe patchy density in the right lung base. He denies any history of vomiting, but has noted some nausea. His general ill feeling with his gout as well and feels like he needs to have a bowel movement. Othe rwise, no other medical complaints are noted. He has a known history of type 2 diabetes mellitus. Gordo garcia is status post cholecystectomy here not too long ago. He has no history of other cardiac illnesses , lung disease otherwise noted. He does have a history otherwise to of hypertension as well. ALLERGIES: He has no known allergies. CURRENT MEDICATIONS: Have been reviewed. PHYSICAL EXAMINATION: VITAL SIGNS: Temperature 99.0, pulse 90, respirations 24, O2 sats 94% on 2 liters, BP 156/62. GENERAL: He appears to be alert, active, does not appear in any significant distress. HEENT: Normocephalic, atraumatic. Conjunctivae clear. NECK: Supple, full range of motion, no masses, no bruits auscultated. LUNGS: Reveal bilateral breath sounds. No evidence of rales or rhonchi otherwise noted. No wheezes , otherwise noted. HEART: Regular rate and rhythm without murmurs, gallops or rubs. ABDOMEN: Generally soft. There is some diffuse tenderness throughout the abdominal exam. Bowel benito nds are decreased but somewhat present. EXTREMITIES: No clubbing, edema or cyanosis. LABORATORY DATA: White blood count today is 18.3, hemoglobin 13.0, hematocrit 39.4. Sodium 139, pot assium 3.4, chloride 105, CO2 24, BUN 16, creatinine 0.88, blood sugars out of control. IMPRESSION: This is a 61-year-old male status post robotic assisted prostatectomy for prostate cance r with history of hypertension, type 2 diabetes mellitus, who now appears to have a postoperative pne umonia whether this represents a possible aspiration pneumonia or hospital acquired pneumonia is unce rtain at this time. He is also suffering from possible ileus and constipation. PLAN: 1. I reviewed his antibiotics. He is currently on cefepime, we will continue at this time, will add Zithromax IV. 2. We will hold his colestipol. 3. Add Dulcolax tabs will be taken as needed for constipation. Clear liquids, which he already star tino. Dr. Cage will follow him this weekend. I have discussed the findings with the patient and hi s as well as Dr. Nance, they are in agreement with the treatment plan at this time.
--- NOTE | 2017-08-11 13:39 | DIS ---
DATE OF ADMISSION: 08/06/2017 DATE OF DISCHARGE: 08/10/2017 ADMITTING DIAGNOSIS: Clinical T1c adenocarcinoma of the prostate. POSTOPERATIVE DIAGNOSIS: Clinical T1c adenocarcinoma of the prostate. DISPOSITION: Home to self-care. ACTIVITY: No heavy lifting, straddling activity allowed. DISCHARGE MEDICATIONS: Include Levaquin, [place] 10/325 #50, Colace, VESIcare. INPATIENT CONSULTATION: Primary Care service due to postop pneumonia, leukocytosis. Followup appointment, 08/20/2017, 1:00 a.m. with a cystogram prior to appointment. 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 Appropriate workup demonstrated adenocarcinoma of the prostate, clinical T1c. He underwent metastatic workup and found to have intermediate-risk prostate cancer and presented 08/06/2017 for robotic-assisted laparoscopic radical prostatectomy. Surgery was uneventful. On postop day #1, he was passing gas. Therefore, his diet was advanced. Subsequently, on postop day #2, he developed leukocytosis and shortness of breath. A lower extremity Doppler was obtained to rule out DVT. Chest x-ray demonstrated pneumonia/pneumonitis. Aggressive pulmonary toilet, broad-spectrum antibiotics were started, and with medical management, he improved. He began to have bowel movements, tolerating regular diet. He has been ambulatory aggressively throughout his hospital course. AMRITA creatinine demonstrated unremarkable findings and was removed on day of discharge. CONDITION: Stable. [facility]
[2017-08-12 15:07] LABS: CO2 Tension 45.3 mmHg (35.0-45.0); pH, Arterial 7.35 (7.35-7.45)
[2017-08-12 15:08] LABS: Actual Bicarbonate (HCO3a) 24.7 mEq/L (22-26); Base Excess (BEa) -1.1 mEq/L (0 (+/-) 2.5); Hemoglobin (Hb) 13.3 g/dL (14.0-18.0); O2 Tension (PaO2) 200.4 mmHg (80.0-100.0)
[2017-08-12 15:12] LABS: Analyzer IN Cardio OR; Calcium, Ionized 1.2 mmol/L (1.12-1.30); Puncture Site ALINE
== END 2017-08-10 14:52 | disposition home or self-care (01) | DRG 707 ==
LOC: SURG A 06:18
PROVIDERS: ADMIT Urology; ATTEND Urology
PROC: 0VT04ZZ Resection of Prostate, Percutaneous Endoscopic Approach (ICD-10-PCS; principal; 2017-08-06)
PROC: 0VT34ZZ Resection of Bilateral Seminal Vesicles, Percutaneous Endoscopic Approach (ICD-10-PCS; 2017-08-06)
PROC: 8E0W4CZ Robotic Assisted Procedure of Trunk Region, Percutaneous Endoscopic Approach (ICD-10-PCS; 2017-08-06)
PROC: 3E0T3BZ Introduction of Anesthetic Agent into Peripheral Nerves and Plexi, Percutaneous Approach (ICD-10-PCS; 2017-08-06)
DX: C61 Malignant neoplasm of prostate (principal); J18.9 Pneumonia, unspecified organism; I08.1 Rheumatic disorders of both mitral and tricuspid valves; K56.7 Ileus, unspecified; J95.89 Other postprocedural complications and disorders of respiratory system, not elsewhere classified; E11.9 Type 2 diabetes mellitus without complications; M10.9 Gout, unspecified; I10 Essential (primary) hypertension; K59.00 Constipation, unspecified; N52.9 Male erectile dysfunction, unspecified; E78.00 Pure hypercholesterolemia, unspecified; E03.9 Hypothyroidism, unspecified; F41.9 Anxiety disorder, unspecified; N35.9 Urethral stricture, unspecified
CPT/HCPCS: 36415; 36416; 71046; 80048; 82570; 82805; 85025; 86850; 86900; 86901; 88304; 88305; 88309; 88331; 90471; 90682; 93970; 94640; J2270; A4216; G0008; J0131; J0456; J0670; J0692; J0694; J0696; J1100; J1265; J1650; J1815; J1956; J2001; J2175; J2250; J2405; J2704; J3010; J7050; P9045; Q2036; S0028

== ENCOUNTER 2017-08-20 10:34 | Outpatient (CLI) | payer OTHER ==
[2017-08-20] MEDS ORDERED: ISOVUE-370 76%-LOCM 1 ML ONE (11:45)
--- NOTE | 2017-08-20 14:25 | RAD ---
FLUOROSCOPICALLY GUIDED CYSTOGRAM: Clinical history: Status post prostatectomy. Post procedure evaluation of the urinary bladder. FINDINGS: Fluoroscopic imaging with retrograde low pressure installation of contrast into the bladder. Upon mod erate distention of the urinary bladder, there is abnormal leakage of contrast at the right base of t he urinary bladder. The urinary bladder demonstrates a trabeculated morphology. Fluoro Date: 0.2 minutes intermittent fluoroscopy, 6.1 mGy*cm^2. IMPRESSION: Abnormal leakage of contrast material from the right urinary bladder. Base telephone call of findings placed to patient's physician, Corrine Nance at time of interpretation. Code CR. POS: [facility]
== END 2017-08-20 10:35 | disposition home or self-care (01) ==
LOC: RAD 10:34
PROVIDERS: ATTEND Urology
DX: C61 Malignant neoplasm of prostate (principal)
CPT/HCPCS: 51600; 74430

== ENCOUNTER 2017-09-15 08:09 | Outpatient (CLI) | payer OTHER ==
[2017-09-15 09:31] LABS: #Basophils 0.1 thou/uL (0.0-0.2); #Eosinphils 0.6 thou/uL (0.0-0.7); #Lymphocytes 1.7 thou/uL (1.20-3.40); #Monocytes 0.9 thou/uL (0.11-0.59); #Neutrophils 6.1 thou/uL (1.40-6.50); %Basophils 0.7 % (0.0-1.0); %Eosinophils 6.2 % (0.0-10.0); %Monocytes 9.7 % (0.0-10.0); %Neutrophils 65.4 % (42.0-75.0); Hemoglobin 14.2 g/dL (14.0-18.0); Mean Corpuscular HGB CONC 33.7 g/dL (32.0-36.0); Mean Corpuscular Hemoglobin 31.7 pg (27.0-31.0); Mean Corpuscular Volume 94.2 fl (80.0-94.0); Mean Platelet Volume 7.2 fL (7.4-10.4); Platelet Count 282 thou/uL (130-400); RBC Distribution Width 11.9 % (11.5-14.5); Red Blood Cell (RBC) Count 4.48 mill/uL (4.70-6.10); White Blood Cell (WBC) Count 9.3 thou/uL (4.8-10.8)
[2017-09-15 09:41] LABS: Bilirubin Negative (Negative); Blood, Urine Negative (Negative); Clarity CLEAR (Clear); Glucose, Urine (Dipstick) Negative (Negative); Leukocyte Negative (Negative); Nitrite Negative (Negative); Protein, Urine (Dipstick) Negative (Neg-Trace); Urobilinogen 0.2 mg/dL (0.2-1.0)
[2017-09-15 09:42] LABS: Bacteria/HPF None Seen HPF (None Seen); Hyaline Casts/LPF 0-3 HYALINE CAST LPF (0-3 Hyaline); RBC/HPF 0-3 HPF (0-3); Squamous Epithelial None Seen HPF (0-3); WBC/HPF 0-3 HPF (0-3)
[2017-09-15 09:43] LABS: Specific Gravity, Urine 1.048 (1.002-1.036)
[2017-09-15 09:54] LABS: ALT (SGPT) 32 U/L (8-55); AST (SGOT) 28 U/L (5-34); Albumin 4.3 g/dL (3.4-4.8); Alkaline Phosphatase 82 U/L (40-150); Anion Gap 13 mmol/L (10-20); BUN (Urea Nitrogen) 21 mg/dL (8.4-25.7); Bilirubin, Direct 0.2 mg/dL (0.1-0.3); Bilirubin, Total 0.5 mg/dL (0.2-1.2); Calc. Creatinine Clearance 0 mL/min (70-130); Calcium 9.5 mg/dL (7.8-10.44); Carbon Dioxide 27 mmol/L (23-31); Chloride 102 mmol/L (98-107); Estimated GFR-MDRD 82; Glucose 139 mg/dL (80-115); Potassium 3.6 mmol/L (3.5-5.1); Protein, Total 7.1 g/dL (5.8-8.1); Sodium 138 mmol/L (136-145)
--- NOTE | 2017-09-15 10:00 | CT ---
PELVIC CT WITH AND WITHOUT CONTRAST: Date: 09/15/17 HISTORY: Prostate cancer March 2017. Six month follow-up after prostatectomy. Hematuria. TECHNIQUE: Pre and postcontrast pelvic CT is performed in the axial plane. Sagittal and coronal reformatted imag es are submitted for interpretation. FINDINGS: No mass, lymphadenopathy, free air, or free fluid. Visualized alimentary canal is unremarkable. Postcontrast images demonstrate appropriate enhancement. There is a right-sided inguinal hernia conta ining mesenteric fat. Contrast opacifies the urinary bladder, which is only minimally distended. No obvious abnormality. Mu cosal prominence of the urinary bladder is presumed to be due to inadequate distention. No lytic or blastic lesions in the osseous structures. IMPRESSION: Mucosal prominent of the urinary bladder, likely due to inadequate distention. POS: [facility]
[2017-09-15] MEDS ORDERED: Iopamidol 370 76% 100 ML VIAL ONE (16:43)
== END 2017-09-15 08:10 | disposition home or self-care (01) ==
LOC: CT 08:09
PROVIDERS: ATTEND Urology
DX: C61 Malignant neoplasm of prostate (principal); N28.9 Disorder of kidney and ureter, unspecified; N32.89 Other specified disorders of bladder
CPT/HCPCS: 72194; 80048; 80076; 81001; 82565; 84153; 85025; 87086

== ENCOUNTER 2017-12-15 08:51 | Outpatient (CLI) | payer OTHER ==
[2017-12-15] MEDS ORDERED: Iopamidol 370 76% 100 ML VIAL ONE (09:39)
[2017-12-15 09:51] LABS: Bilirubin Negative (Negative); Blood, Urine Negative (Negative); Clarity CLEAR (Clear); Glucose, Urine (Dipstick) 500 mg/dL (Negative); Leukocyte Negative (Negative); Nitrite Negative (Negative); Protein, Urine (Dipstick) Trace mg/dL (Neg-Trace); Specific Gravity, Urine 1.023 (1.002-1.036); Urobilinogen 0.2 mg/dL (0.2-1.0); pH, Urine 6.5 (5.0-9.0)
[2017-12-15 09:53] LABS: ALT (SGPT) 37 U/L (8-55); AST (SGOT) 30 U/L (5-34); Albumin 4.3 g/dL (3.4-4.8); Alkaline Phosphatase 78 U/L (40-150); Anion Gap 14 mmol/L (10-20); BUN (Urea Nitrogen) 17 mg/dL (8.4-25.7); Bilirubin, Total 0.7 mg/dL (0.2-1.2); Calc. Creatinine Clearance 0 mL/min (70-130); Calcium 9.2 mg/dL (7.8-10.44); Carbon Dioxide 28 mmol/L (23-31); Chloride 102 mmol/L (98-107); Estimated GFR-MDRD 60; Globulin 3.1 g/dL (2.4-3.5); Glucose 204 mg/dL (80-115); Protein, Total 7.4 g/dL (5.8-8.1); Sodium 140 mmol/L (136-145)
[2017-12-15 09:54] LABS: Bacteria/HPF None Seen HPF (None Seen); Hyaline Casts/LPF 7-10 HYALINE CAST LPF (0-3 Hyaline); Pathc Cast-AUWi Flag 0.87 (0-2.49); RBC/HPF 0-3 HPF (0-3); Squamous Epithelial 0-3 HPF (0-3); WBC/HPF None Seen HPF (0-3)
--- NOTE | 2017-12-15 12:08 | CT ---
CT ABDOMEN WITH AND WITHOUT IV CONTRAST: Date: 12/15/17 HISTORY: Follow-up renal lesion. Prostate cancer. Status post prostatectomy. COMPARISON: 04/15/17 and 08/08/13. FINDINGS: There is a tiny calcified granuloma in the left lower lobe. There are postop changes of cholecystecto my. A 12.0 mm cyst in the right lobe of the liver is stable since 04/15/17 and smaller since 08/08/13 . No new liver lesions are seen. The liver, pancreas, and adrenal glands are normal. Punctate calculi are seen in the kidneys on either side. The visualized portions of the ureters demon strate no evidence of calculi. No hydroureteronephrosis seen on either side. The 8.0 mm enhancing les ion in the posterior aspect of the superior pole of the right kidney is stable since 2013. The subcen timeter hyperdense lesion in the inferior pole of the right kidney is also unchanged. No left renal m ass is seen. No free air, free fluid, or lymphadenopathy is seen in the abdomen. There is no evidence of aneurysma l dilatation of the abdominal aorta. There are degenerative changes in the spine. The small bowel loo ps are not abnormally dilated. A small duodenal diverticulum is again seen. IMPRESSION: 1. Stable 8.0 mm enhancing nodule (?RCC) in the right kidney since 08/08/13. 2. Punctate nonobstructing bilateral renal calculi. 3. Right hepatic lobe cyst. 4. Small duodenal diverticulum. POS: [facility]
== END 2017-12-15 08:52 | disposition home or self-care (01) ==
LOC: CT 08:51
PROVIDERS: ATTEND Urology
DX: N28.9 Disorder of kidney and ureter, unspecified (principal); C61 Malignant neoplasm of prostate; Z90.79 Acquired absence of other genital organ(s); Z87.442 Personal history of urinary calculi; N28.89 Other specified disorders of kidney and ureter; N20.0 Calculus of kidney; K76.89 Other specified diseases of liver; K57.10 Diverticulosis of small intestine without perforation or abscess without bleeding
CPT/HCPCS: 36415; 74170; 80053; 81001; 84153; 87086

== ENCOUNTER 2018-06-08 12:54 | Outpatient (CLI) | payer OTHER ==
--- NOTE | 2018-06-08 17:54 | ULT ---
ULTRASOUND RETROPERITONEUM COMPLETE: (RENAL) Date: 06/08/18 HISTORY: 62-year-old male follow-up renal lesion. FINDINGS: Right kidney measures 12 x 5 x 5.5 cm. Left kidney measures 12 x 5 x 4.5 cm. No hydronephrosis bilaterally. Bilateral renal parenchymal thickness and echogenicity are normal. There is a tiny, approximately 0.8 cm exophytic structure protruding slightly from the outer cortical surface of the right renal upper pole. It is uncertain whether or not this corresponds to the tiny e xophytic cortical lesion of similar size on the CT of 12/15/17. It has echogenicity similar to that o f adjacent normal renal parenchyma. There is a tiny, approximately 0.5 cm, hypoechoic focus at the lower pole parenchyma of the right kid roselyn. This probably corresponds to similar tiny hypodense lesion found on the recent CT. It is too sma ll to definitively characterize, but it is probably a tiny cyst. Urinary bladder appears normal. IMPRESSION: 1. Very small exophytic cortical lesion arising from the cortical surface of the right renal upper p ole, too small to characterize. This is better demonstrated on CTs with and without contrast. 2. Tiny subcentimeter lesion at lower pole cortex of right kidney, probably a cyst. SHELBY Cueva POS: [facility]
== END 2018-06-08 12:55 | disposition home or self-care (01) ==
LOC: BICULT 12:54
PROVIDERS: ATTEND Urology
DX: N28.9 Disorder of kidney and ureter, unspecified (principal)
CPT/HCPCS: 76770